=== PATIENT | female | born 1980 | race African-American/Black ===

== ENCOUNTER 2017-08-22 07:07 | Emergency (ER) | payer OTHER ==
[~2017-08-22] VITALS: Ht 170.2 cm; Wt 116.8 kg
[~2017-08-22 07:07] MED LIST: ATOR20TA86 PO; HYDR25TA PO
[2017-08-22] MEDS ORDERED: NAPR250T4 PO (07:11)
[2017-08-22] MEDS ORDERED: PERTUSS(ACELL),DIPH,TET VAC/PF 0.5 ML VIAL IM ONE (08:15)
[2017-08-22 08:46] LABS: APPEARANCE,URINE CLOUDY (CLEAR); GLUCOSE, URINE (UA) NEGATIVE (NEGATIVE); KETONES,URINE NEGATIVE (NEGATIVE); LEUKOCYTE ESTERASE ,URINE SMALL (NEGATIVE); OCCULT BLOOD,URINE MODERATE (NEGATIVE); PH,URINE 5.5 (5.0-8.0); PROTEIN,URINE NEGATIVE (NEGATIVE)
[2017-08-22 08:55] LABS: RBC,URINE 0-2 /HPF (0-2); SQUAMOUS EPITHELIAL CELL,UR Few /LPF (None Seen); URINALYSIS COMMENT Few Trichomonas seen
[2017-08-22] MEDS ORDERED: BACITRACIN 0.9 GM PACKET OINTMENT TP ONE (09:00)
[2017-08-22] MEDS ORDERED: MetroNIDAZOLE 500 MG TABLET PO ONE (09:15)
[2017-08-22 09:16] VITALS: BP 161/95
== END 2017-08-22 09:35 | disposition home or self-care (01) ==
LOC: EMS 07:08
DX: M79.644 Pain in right finger(s) (principal); M25.562 Pain in left knee; A59.8 Trichomoniasis of other sites; I10 Essential (primary) hypertension; E78.00 Pure hypercholesterolemia, unspecified; J45.909 Unspecified asthma, uncomplicated; Z87.891 Personal history of nicotine dependence
CPT/HCPCS: 29505; 87086; 90471; 90715; 99285

== ENCOUNTER 2019-06-23 03:17 | Emergency (ER) | payer OTHER ==
[~2019-06-23] VITALS: Ht 170.2 cm; Wt 111.4 kg
[~2019-06-23 03:17] MED LIST changes: +NAPR250T4 PO
[2019-06-23] MEDS ORDERED: LISI10TA7 PO (03:34)
[2019-06-23] MEDS ORDERED: FURO20TA4 PO (03:34)
[2019-06-23 03:52] VITALS: BP_DIAS 86
[2019-06-23 04:18] LABS: BASOPHILS % (AUTO) 0.7 % (0.0-2.0); EOSINOPHILS % (AUTO) 0.7 % (1.0-6.0); HEMATOCRIT 38.5 % (36-46); HEMOGLOBIN 12.6 g/dL (12.0-16.0); LYMPHOCYTES # (AUTO) 2.6 K/uL (1.0-4.8); LYMPHOCYTES % (AUTO) 33.5 % (22.0-44.0); MEAN CORPUSCULAR HGB CONC 32.9 G/dL (31.0-37.0); MEAN CORPUSCULAR VOLUME 91 fL (80-100); MONOCYTES # (AUTO) 0.4 K/uL (0.1-1.0); MONOCYTES % (AUTO) 5.5 % (2.0-9.0); NEUTROPHILS # (AUTO) 4.6 K/uL (1.8-7.7); NEUTROPHILS % (AUTO) 59.6 % (40.0-70.0); PLATELET COUNT (AUTO) 315 K/uL (150-450); RED BLOOD CELL COUNT(AUTO) 4.21 MIL/uL (4.00-5.20); RED CELL DISTRIBUTION WIDTH 14.5 % (11.5-14.5)
[2019-06-23 04:24] LABS: APPEARANCE,URINE CLOUDY (CLEAR); BILIRUBIN,URINE NEGATIVE (NEGATIVE); GLUCOSE, URINE (UA) NEGATIVE (NEGATIVE); KETONES,URINE NEGATIVE (NEGATIVE); LEUKOCYTE ESTERASE ,URINE NEGATIVE (NEGATIVE); NITRATE,URINE NEGATIVE (NEGATIVE); OCCULT BLOOD,URINE MODERATE (NEGATIVE); PROTEIN,URINE NEGATIVE (NEGATIVE); UROBILINOGEN,URINE 0.2 mg/dL (<=1.0)
[2019-06-23 04:26] LABS: ANION GAP 8 mmol/L (8-16); CALCIUM, TOTAL 9.9 mg/dL (8.8-10.5); CARBON DIOXIDE 31 mmol/L (22-29); CHLORIDE 101 mmol/L (98-107); CREATININE 1.07 mg/dL (0.60-1.30); GLOMERULAR FILTR. RATE CALC > 60 mL/min (>60); GLUCOSE,RANDOM 121 mg/dL (70-110); POTASSIUM 3.4 mmol/L (3.5-5.1); SODIUM SERUM 140 mmol/L (136-145); UREA NITROGEN, BLOOD 11 mg/dL (7-18)
[2019-06-23 04:31] LABS: BACTERIA,URINE None Seen /HPF (None Seen); SQUAMOUS EPITHELIAL CELL,UR Many /LPF (None Seen)
[2019-06-23 04:39] LABS: ALANINE AMINOTRANSFERASE 48 U/L (12-78); ALBUMIN 4.1 g/dL (3.4-5.0); ALKALINE PHOSPHATASE 84 U/L (46-116); ASPARTATE AMINOTRANSFERASE 23 U/L (15-37); BILIRUBIN,TOTAL 0.5 mg/dL (0.1-1.0); HCG,QUANTITATIVE < 1 mIU/mL (0-6); TOTAL PROTEIN, SERUM 8.1 g/dL (6.4-8.2)
[2019-06-23] MEDS ORDERED: TraMADol HCL 50 MG TABLET PO ONE (05:30)
[2019-06-23] MEDS ORDERED: CYCLOBENZAPRINE HCL 10 MG TABLET PO ONE (05:30)
[2019-06-23 06:34] VITALS: BP_SYST 135
== END 2019-06-23 06:43 | disposition home or self-care (01) ==
LOC: EMS 03:19
DX: M54.5 Low back pain (principal); G89.29 Other chronic pain; J45.909 Unspecified asthma, uncomplicated; I10 Essential (primary) hypertension; E78.00 Pure hypercholesterolemia, unspecified; Z87.891 Personal history of nicotine dependence; Z59.0 Homelessness; Z90.49 Acquired absence of other specified parts of digestive tract; Z79.899 Other long term (current) drug therapy

== ENCOUNTER 2020-05-27 03:51 | Emergency (ER) | payer OTHER ==
[~2020-05-27] VITALS: Ht 170.2 cm; Wt 121.8 kg
[~2020-05-27 03:51] MED LIST changes: -ATOR20TA86 PO; +FURO20TA4 PO; +HYDR-1475 PO; -HYDR25TA PO; +LISI10TA7 PO; -NAPR250T4 PO
[2020-05-27 04:56] VITALS: BP 135/85
== END 2020-05-27 04:56 | disposition left against medical advice (07) ==
LOC: EMS 03:51
DX: R30.0 Dysuria (principal); M54.5 Low back pain; J45.909 Unspecified asthma, uncomplicated; E78.00 Pure hypercholesterolemia, unspecified; I10 Essential (primary) hypertension; F17.210 Nicotine dependence, cigarettes, uncomplicated; Z90.89 Acquired absence of other organs; Z59.0 Homelessness
CPT/HCPCS: 93005

== ENCOUNTER 2020-06-04 02:44 | Emergency (ER) | payer OTHER ==
[~2020-06-04] VITALS: Ht 175.3 cm; Wt 120.5 kg
[2020-06-04] MEDS ORDERED: MAG HYDROX/AL HYDROX/SIMETH 30 ML SUSP UDCUP PO ONE (04:30)
[2020-06-04] MEDS ORDERED: FAMOTIDINE 10 MG/ML 2 ML VIAL IVP ONE (04:30)
[2020-06-04 05:01] LABS: APPEARANCE,URINE CLEAR (CLEAR); BILIRUBIN,URINE NEGATIVE (NEGATIVE); GLUCOSE, URINE (UA) NEGATIVE (NEGATIVE); KETONES,URINE NEGATIVE (NEGATIVE); LEUKOCYTE ESTERASE ,URINE NEGATIVE (NEGATIVE); NITRATE,URINE NEGATIVE (NEGATIVE); OCCULT BLOOD,URINE TRACE (NEGATIVE); PROTEIN,URINE NEGATIVE (NEGATIVE); UROBILINOGEN,URINE 0.2 mg/dL (<=1.0)
[2020-06-04 05:03] LABS: BACTERIA,URINE Rare /HPF (None Seen); RBC,URINE 0-2 /HPF (0-2); SQUAMOUS EPITHELIAL CELL,UR Few /LPF (None Seen); WBC,URINE 0-2 /HPF (0-5)
[2020-06-04 05:25] LABS: BASOPHILS % (AUTO) 0.5 % (0.0-2.0); EOSINOPHILS % (AUTO) 1.2 % (1.0-6.0); HEMATOCRIT 36.2 % (36-46); HEMOGLOBIN 11.8 g/dL (12.0-16.0); LYMPHOCYTES # (AUTO) 2.5 K/uL (1.0-4.8); LYMPHOCYTES % (AUTO) 33.5 % (22.0-44.0); MEAN CORPUSCULAR HGB CONC 32.5 G/dL (31.0-37.0); MEAN CORPUSCULAR VOLUME 89 fL (80-100); MONOCYTES # (AUTO) 0.4 K/uL (0.1-1.0); MONOCYTES % (AUTO) 5.1 % (2.0-9.0); NEUTROPHILS # (AUTO) 4.4 K/uL (1.8-7.7); NEUTROPHILS % (AUTO) 59.7 % (40.0-70.0); PLATELET COUNT (AUTO) 311 K/uL (150-450); RED BLOOD CELL COUNT(AUTO) 4.06 MIL/uL (4.00-5.20); RED CELL DISTRIBUTION WIDTH 14.5 % (11.5-14.5)
[2020-06-04 05:36] LABS: ANION GAP 3 mmol/L (8-16); CALCIUM, TOTAL 8.8 mg/dL (8.8-10.5); CARBON DIOXIDE 33 mmol/L (22-29); CHLORIDE 102 mmol/L (98-107); CREATININE 1.12 mg/dL (0.60-1.30); GLOMERULAR FILTR. RATE CALC > 60 mL/min (>60); GLUCOSE,RANDOM 142 mg/dL (70-110); POTASSIUM 3.3 mmol/L (3.5-5.1); SODIUM SERUM 138 mmol/L (136-145); UREA NITROGEN, BLOOD 12 mg/dL (7-18)
[2020-06-04 05:56] LABS: D-DIMER 0.33 mg/L FEU (0.00-0.50); PROTHROMBIN TIME 10.3 SEC (9.4-11.6)
[2020-06-04 06:00] LABS: B-TYPE NATRIURETIC PEPTIDE < 4 pg/mL (0-100)
[2020-06-04] MEDS ORDERED: POTASSIUM CHLORIDE 20 MEQ ER TABLET PO ONE (06:00)
[2020-06-04 06:01] LABS: ALANINE AMINOTRANSFERASE 39 U/L (12-78); ALBUMIN 3.6 g/dL (3.4-5.0); ALKALINE PHOSPHATASE 80 U/L (46-116); ASPARTATE AMINOTRANSFERASE 23 U/L (15-37); BILIRUBIN,TOTAL 0.4 mg/dL (0.1-1.0); CREATINE KINASE, TOTAL ONLY 384 U/L (26-192); HCG,QUANTITATIVE 1 mIU/mL (0-6); TOTAL PROTEIN, SERUM 7.9 g/dL (6.4-8.2)
[2020-06-04 07:00] VITALS: BP 141/84
== END 2020-06-04 08:11 | disposition home or self-care (01) ==
LOC: EMS 02:44
DX: R60.0 Localized edema (principal); Z20.828 Contact with and (suspected) exposure to other viral communicable diseases
CPT/HCPCS: 36415; 71045; 80053; 81001; 82550; 83880; 84484; 84702; 85025; 85379; 85610; 85730; 93005; 93971; 96374; 99285; J3490; U0003

== ENCOUNTER 2020-12-18 00:16 | Emergency (ER) | payer OTHER ==
[~2020-12-18] VITALS: Ht 170.2 cm; Wt 129.6 kg
[2020-12-18 00:18] VITALS: BP 144/99
== END 2020-12-18 02:09 | disposition left against medical advice (07) ==
LOC: EMS 00:16
DX: R06.02 Shortness of breath (principal); Z53.21 Procedure and treatment not carried out due to patient leaving prior to being seen by health care provider

== ENCOUNTER 2021-09-12 02:36 | Emergency (ER) | payer OTHER ==
[~2021-09-12] VITALS: Ht 157.5 cm; Wt 121.4 kg
[~2021-09-12 02:36] MED LIST changes: -HYDR-1475 PO; +HYDR25TA2 PO; +LISI10TA24 PO; -LISI10TA7 PO
[2021-09-12 03:11] VITALS: BP 169/82
[2021-09-12 03:11] LABS: BASOPHILS % (AUTO) 0.5 % (0.0-2.0); EOSINOPHILS % (AUTO) 1.5 % (1.0-6.0); HEMATOCRIT 35.1 % (36-46); HEMOGLOBIN 11.5 g/dL (12.0-16.0); LYMPHOCYTES # (AUTO) 2.4 K/uL (1.0-4.8); LYMPHOCYTES % (AUTO) 39.8 % (22.0-44.0); MEAN CORPUSCULAR HEMOGLOBIN 29.5 pg (26.0-34.0); MEAN CORPUSCULAR HGB CONC 32.8 G/dL (31.0-37.0); MEAN CORPUSCULAR VOLUME 90 fL (80-100); MONOCYTES # (AUTO) 0.3 K/uL (0.1-1.0); NEUTROPHILS # (AUTO) 3.1 K/uL (1.8-7.7); NEUTROPHILS % (AUTO) 53.2 % (40.0-70.0); PLATELET COUNT (AUTO) 283 K/uL (150-450); RED CELL DISTRIBUTION WIDTH 13.9 % (11.5-14.5)
[2021-09-12 03:22] LABS: ANION GAP 11 mmol/L (8-16); CALCIUM, TOTAL 8.3 mg/dL (8.8-10.5); CARBON DIOXIDE 25 mmol/L (22-29); CHLORIDE 107 mmol/L (98-107); CREATININE 1.12 mg/dL (0.60-1.30); GLOMERULAR FILTR. RATE CALC > 60 mL/min (>60); GLUCOSE,RANDOM 134 mg/dL (70-110); POTASSIUM 3.9 mmol/L (3.5-5.1); SODIUM SERUM 143 mmol/L (136-145); UREA NITROGEN, BLOOD 15 mg/dL (7-18)
[2021-09-12 03:25] LABS: ALANINE AMINOTRANSFERASE 48 U/L (12-78); ALBUMIN 3.5 g/dL (3.4-5.0); ALKALINE PHOSPHATASE 87 U/L (46-116); ASPARTATE AMINOTRANSFERASE 23 U/L (15-37); BILIRUBIN,TOTAL 0.3 mg/dL (0.1-1.0); TOTAL PROTEIN, SERUM 7.3 g/dL (6.4-8.2)
[2021-09-12 03:29] LABS: B-TYPE NATRIURETIC PEPTIDE 14 pg/mL (0-100)
[2021-09-12 03:43] LABS: HCG,QUANTITATIVE 1 mIU/mL (0-6)
[2021-09-12] MEDS ORDERED: KETOROLAC TROMETHAMINE 10 MG TABLET PO ONE (03:45)
[2021-09-12] MEDS ORDERED: FUROSEMIDE 20 MG TABLET PO ONE (03:45)
== END 2021-09-12 04:32 | disposition home or self-care (01) ==
LOC: EMS 02:37
DX: M79.89 Other specified soft tissue disorders (principal); J45.909 Unspecified asthma, uncomplicated; E78.00 Pure hypercholesterolemia, unspecified; I10 Essential (primary) hypertension; F17.210 Nicotine dependence, cigarettes, uncomplicated; Z59.00 Homelessness unspecified; Z90.89 Acquired absence of other organs; Z88.2 Allergy status to sulfonamides; Z91.011 Allergy to milk products; Z79.899 Other long term (current) drug therapy
CPT/HCPCS: 80053; 83880; 84702; 85025; 93005; 99284

== ENCOUNTER 2021-10-04 03:40 | Emergency (ER) | payer OTHER ==
[~2021-10-04] VITALS: Ht 170.2 cm; Wt 120.5 kg
[2021-10-04 03:53] VITALS: BP 163/97
[2021-10-04 04:22] LABS: COVID AG,FIA SOURCE NASOPHARYNGEAL
== END 2021-10-04 05:10 | disposition home or self-care (01) ==
LOC: EMS 03:43
DX: J40 Bronchitis, not specified as acute or chronic (principal); I11.0 Hypertensive heart disease with heart failure; I50.9 Heart failure, unspecified; E78.00 Pure hypercholesterolemia, unspecified; Z87.891 Personal history of nicotine dependence; Z20.822 Contact with and (suspected) exposure to COVID-19; Z88.8 Allergy status to other drugs, medicaments and biological substances; Z79.899 Other long term (current) drug therapy
CPT/HCPCS: 99283

== ENCOUNTER 2023-01-28 13:43 | Emergency (ER) | payer OTHER ==
[~2023-01-28] VITALS: Ht 170.2 cm; Wt 120.5 kg
[2023-01-28 13:46] VITALS: BP 156/62
== END 2023-01-28 16:33 | disposition left against medical advice (07) ==
LOC: EMS 13:47
DX: M25.551 Pain in right hip (principal); M25.562 Pain in left knee; Z53.21 Procedure and treatment not carried out due to patient leaving prior to being seen by health care provider
CPT/HCPCS: 99281; Z7502

== ENCOUNTER 2024-03-16 21:54 | Emergency (ER) | payer OTHER ==
[~2024-03-16] VITALS: Ht 170.2 cm; Wt 120.0 kg
[2024-03-16 22:37] VITALS: TEMP 97.7
[2024-03-16] MEDS ORDERED: METF-1211 PO (22:41)
[2024-03-16] MEDS ORDERED: ALBU18HF12 IH (22:41)
[2024-03-16] MEDS ORDERED: ALBU90AE IH (22:42)
[2024-03-17] MEDS ORDERED: LIDOCAINE 1% 10 ML VIAL IM ONE (00:45)
[2024-03-17] MEDS: LIDOCAINE/PF 1% 5 ML VIAL IM ONE (00:49)
[2024-03-17] MEDS: DOXYCYCLINE HYCLATE 100 MG TABLET PO ONE (02:20)
[2024-03-17] MEDS: OxyCODONE HCL/ACETAMINOPHEN 5-325 MG TABLET PO ONE (02:20)
[2024-03-17 02:40] VITALS: BP 134/81; PULSE 80; RESP 18
[2024-03-17] MEDS: CEPHALEXIN MONOHYDRATE 250 MG/5 ML SUSPENSION ORAL.SYG PO ONE (03:00)
== END 2024-03-17 03:48 | disposition home or self-care (01) ==
LOC: EMS 21:56
DX: L02.11 Cutaneous abscess of neck (principal); E78.00 Pure hypercholesterolemia, unspecified; I10 Essential (primary) hypertension; J44.89 Other specified chronic obstructive pulmonary disease; Z87.440 Personal history of urinary (tract) infections; Z87.891 Personal history of nicotine dependence; Z90.49 Acquired absence of other specified parts of digestive tract; Z88.2 Allergy status to sulfonamides; Z59.00 Homelessness unspecified; Z98.890 Other specified postprocedural states
CPT/HCPCS: 99284; 10060; J2001

== ENCOUNTER 2025-06-30 03:23 | Emergency (ER) | payer OTHER ==
[~2025-06-30] VITALS: Ht 171.4 cm; Wt 114.5 kg
[~2025-06-30 03:23] MED LIST changes: +ALBU18HF12 IH; +ALBU90AE IH; -FURO20TA4 PO; -LISI10TA24 PO; +METF-1211 PO
[2025-06-30 03:37] VITALS: BP 152/93; PULSE 91; RESP 18; TEMP 98.5; O2SAT 100
[2025-06-30 03:51] LABS: GLUCOMETER DEV NAME(LOC) ER.7; GLUCOSE,POINT OF CARE 187 MG/DL (70-110)
[2025-06-30 04:00] LABS: APPEARANCE,URINE HAZY (CLEAR); GLUCOSE, URINE (UA) NEGATIVE (NEGATIVE); LEUKOCYTE ESTERASE ,URINE LARGE (NEGATIVE); NITRATE,URINE NEGATIVE (NEGATIVE); OCCULT BLOOD,URINE NEGATIVE (NEGATIVE); SPECIFIC GRAVITIY, URINE 1.030 (1.003-1.030)
[2025-06-30 04:21] LABS: SQUAMOUS EPITHELIAL CELL,UR Few /LPF (None Seen)
== END 2025-06-30 06:15 | disposition left against medical advice (07) ==
LOC: EMS 03:31
DX: R30.9 Painful micturition, unspecified (principal); Z53.21 Procedure and treatment not carried out due to patient leaving prior to being seen by health care provider
CPT/HCPCS: 81001; 82962; 87086

== ENCOUNTER 2025-07-11 05:54 | Emergency (ER) | payer OTHER ==
[~2025-07-11] VITALS: Ht 170.2 cm; Wt 116.4 kg
[2025-07-11 06:02] VITALS: TEMP 98.1
[2025-07-11 06:33] LABS: PLATELET COUNT (AUTO) 318 K/uL (150-450); RED BLOOD CELL COUNT(AUTO) 4.41 MIL/uL (4.00-5.20); RED CELL DISTRIBUTION WIDTH 14.1 % (11.5-14.5); WHITE BLOOD COUNT (AUTO) 4.9 K/uL (4.5-11.0)
[2025-07-11 06:40] LABS: CALCIUM, TOTAL 8.7 mg/dL (8.8-10.5); CREATININE 1.11 mg/dL (0.60-1.30); GLOMERULAR FILTR. RATE CALC > 60 mL/min (>60); GLUCOSE,RANDOM 238 mg/dL (70-110); SODIUM SERUM 138 mmol/L (136-145); UREA NITROGEN, BLOOD 9 mg/dL (7-18)
[2025-07-11 06:49] LABS: TROPONIN I-HIGH SENSITIVITY 6 ng/L (<51)
[2025-07-11 06:53] LABS: CREATINE KINASE, TOTAL ONLY 308 U/L (26-192)
[2025-07-11 07:18] LABS: APPEARANCE,URINE HAZY (CLEAR); GLUCOSE, URINE (UA) 300-500 mg/dL (NEGATIVE); LEUKOCYTE ESTERASE ,URINE LARGE (NEGATIVE); NITRATE,URINE NEGATIVE (NEGATIVE); OCCULT BLOOD,URINE TRACE (NEGATIVE); SPECIFIC GRAVITIY, URINE 1.030 (1.003-1.030)
[2025-07-11] MEDS: MetFORMIN HCL 500 MG ER TABLET PO ONE (07:22)
[2025-07-11] MEDS: IBUPROFEN 600 MG TABLET PO ONE (07:22)
[2025-07-11] MEDS: HYDROCODONE/ACETAMINOPHEN 5-325 MG TABLET PO ONE (07:22)
[2025-07-11 07:26] LABS: SQUAMOUS EPITHELIAL CELL,UR Many /LPF (None Seen)
[2025-07-11] MEDS: IPRATROPIUM BROMIDE 0.5 MG/2.5 ML NEB SOLUTION NEB ONE (07:30)
[2025-07-11] MEDS: ALBUTEROL SULFATE 2.5 MG/0.5 ML NEB SOLUTION NEB ONE (07:30)
[2025-07-11 07:35] VITALS: PULSE 96; RESP 22; O2SAT 98
[2025-07-11 07:45] VITALS: PULSE 95; RESP 20; O2SAT 100
[2025-07-11] MEDS ORDERED: IBUP600 PO (08:33)
[2025-07-11] MEDS ORDERED: PREDAOS OU (08:33)
[2025-07-11] MEDS ORDERED: ALBU18HF12 IH (08:33)
[2025-07-11] MEDS ORDERED: OFLO5DRO49 OU (08:33)
[2025-07-11] MEDS ORDERED: HYDR25TA2 PO (08:33)
[2025-07-11] MEDS ORDERED: ALBU90AE IH (08:33)
[2025-07-11] MEDS ORDERED: METF-1211 PO (08:33)
[2025-07-11] MEDS ORDERED: CEPH-558 PO (08:33)
[2025-07-11] MEDS ORDERED: METH-659 PO (08:34)
[2025-07-11] MEDS ORDERED: PRED-554 PO (08:34)
[2025-07-11 08:45] VITALS: BP 141/84; PULSE 92; RESP 20; O2SAT 98
== END 2025-07-11 10:22 | disposition home or self-care (01) ==
LOC: EMS 05:54
DX: J45.901 Unspecified asthma with (acute) exacerbation (principal); E11.65 Type 2 diabetes mellitus with hyperglycemia; E78.00 Pure hypercholesterolemia, unspecified; N39.0 Urinary tract infection, site not specified; I10 Essential (primary) hypertension; J44.1 Chronic obstructive pulmonary disease with (acute) exacerbation; Z87.891 Personal history of nicotine dependence; Z90.49 Acquired absence of other specified parts of digestive tract; Z88.1 Allergy status to other antibiotic agents; Z88.2 Allergy status to sulfonamides; Z59.00 Homelessness unspecified; Z79.899 Other long term (current) drug therapy; Z98.890 Other specified postprocedural states
CPT/HCPCS: 99285; 71045; 80048; 81001; 82550; 82962; 83880; 84484; 85025; 85379; 87086; 36415; 94640; 93005; J7512; 94760; J7613

== ENCOUNTER 2025-07-29 04:55 | Emergency (ER) | payer OTHER ==
[~2025-07-29] VITALS: Ht 172.7 cm; Wt 130.0 kg
[~2025-07-29 04:55] MED LIST changes: +CEPH-558 PO; +IBUP600 PO; +METH-659 PO; +OFLO5DRO49 OU; +PRED-554 PO; +PREDAOS OU
[2025-07-29 05:01] VITALS: TEMP 98.4
[2025-07-29 06:16] LABS: GLUCOMETER DEV NAME(LOC) ER.7; GLUCOSE,POINT OF CARE 212 MG/DL (70-110)
[2025-07-29 06:25] VITALS: BP 145/86; PULSE 90; RESP 18; O2SAT 100
[2025-07-29 06:35] LABS: APPEARANCE,URINE CLEAR (CLEAR); GLUCOSE, URINE (UA) NEGATIVE (NEGATIVE); LEUKOCYTE ESTERASE ,URINE SMALL (NEGATIVE); NITRATE,URINE NEGATIVE (NEGATIVE); OCCULT BLOOD,URINE NEGATIVE (NEGATIVE); SPECIFIC GRAVITIY, URINE 1.023 (1.003-1.030)
[2025-07-29 06:39] LABS: HCG,QUAL URINE NEGATIVE (NEGATIVE)
[2025-07-29] MEDS: ACETAMINOPHEN/CODEINE 300-30 MG TABLET PO ONE (07:02)
[2025-07-29] MEDS: IBUPROFEN 600 MG TABLET PO ONE (07:02)
[2025-07-29] MEDS ORDERED: HYDR-4808 PO (07:02)
[2025-07-29] MEDS ORDERED: IBUP600 PO (07:02)
[2025-07-29] MEDS ORDERED: PREDAOS OU (07:02)
[2025-07-29] MEDS ORDERED: OFLO5DRO49 OU (07:02)
[2025-07-29] MEDS ORDERED: NITR-104 PO (07:02)
[2025-07-29 07:03] LABS: SQUAMOUS EPITHELIAL CELL,UR Few /LPF (None Seen); URINALYSIS COMMENT Rare Trich. seen.
== END 2025-07-29 07:35 | disposition home or self-care (01) ==
LOC: EMS 05:00
DX: R51.9 Headache, unspecified (principal); R30.0 Dysuria; F41.9 Anxiety disorder, unspecified; G47.00 Insomnia, unspecified; E11.9 Type 2 diabetes mellitus without complications; E78.00 Pure hypercholesterolemia, unspecified; I10 Essential (primary) hypertension; J44.89 Other specified chronic obstructive pulmonary disease; Z87.891 Personal history of nicotine dependence; Z59.00 Homelessness unspecified; Z79.52 Long term (current) use of systemic steroids; Z79.84 Long term (current) use of oral hypoglycemic drugs; Z79.899 Other long term (current) drug therapy; Z88.1 Allergy status to other antibiotic agents; Z88.2 Allergy status to sulfonamides; Z90.49 Acquired absence of other specified parts of digestive tract; Y04.0XXA Assault by unarmed brawl or fight, initial encounter; Y93.89 Activity, other specified; Y92.219 Unspecified school as the place of occurrence of the external cause; Y99.8 Other external cause status
CPT/HCPCS: 81001; 82962; 84703; 99283

== ENCOUNTER 2025-08-14 06:59 | Emergency (ER) | payer OTHER ==
[~2025-08-14] VITALS: Ht 171.4 cm; Wt 118.2 kg
[~2025-08-14 06:59] MED LIST changes: +HYDR-4808 PO; +NITR-104 PO
[2025-08-14 07:13] VITALS: TEMP 97.7
[2025-08-14 07:35] LABS: GLUCOMETER DEV NAME(LOC) ERT.7; GLUCOSE,POINT OF CARE 151 MG/DL (70-110)
[2025-08-14 07:40] LABS: PLATELET COUNT (AUTO) 287 K/uL (150-450); RED BLOOD CELL COUNT(AUTO) 3.86 MIL/uL (4.00-5.20); RED CELL DISTRIBUTION WIDTH 14.2 % (11.5-14.5); WHITE BLOOD COUNT (AUTO) 5.6 K/uL (4.5-11.0)
[2025-08-14 07:45] LABS: CALCIUM, TOTAL 8.2 mg/dL (8.8-10.5); CREATININE 0.82 mg/dL (0.60-1.30); GLOMERULAR FILTR. RATE CALC > 60 mL/min (>60); GLUCOSE,RANDOM 150 mg/dL (70-110); SODIUM SERUM 139 mmol/L (136-145); UREA NITROGEN, BLOOD 8 mg/dL (7-18)
[2025-08-14 07:54] LABS: TROPONIN I-HIGH SENSITIVITY 6 ng/L (<51)
[2025-08-14 09:30] VITALS: PULSE 85; PULSE 87; RESP 20; RESP 24; O2SAT 100
[2025-08-14] MEDS: ALBUTEROL SULFATE 2.5 MG/0.5 ML NEB SOLUTION NEB ONE (09:31)
[2025-08-14] MEDS: IPRATROPIUM BROMIDE 0.5 MG/2.5 ML NEB SOLUTION NEB ONE ×2 (09:31→10:05)
[2025-08-14] MEDS: ALBUTEROL SULFATE 2.5 MG/0.5 ML 5 ML NEB SOLUTION NEB ONE (10:06)
[2025-08-14 11:25] VITALS: BP 132/84; PULSE 74; RESP 17; O2SAT 98
[2025-08-14] MEDS ORDERED: PRED-554 PO (12:42)
[2025-08-14] MEDS: ALBUTEROL SULFATE HFA 90 MCG/PUFF 8 GM INHALER IH ONE (12:56)
== END 2025-08-14 13:27 | disposition home or self-care (01) ==
LOC: EMS 07:04
DX: J44.89 Other specified chronic obstructive pulmonary disease (principal); R06.02 Shortness of breath; E11.9 Type 2 diabetes mellitus without complications; E78.00 Pure hypercholesterolemia, unspecified; I10 Essential (primary) hypertension; Z87.891 Personal history of nicotine dependence; Z59.00 Homelessness unspecified; Z79.52 Long term (current) use of systemic steroids; Z88.2 Allergy status to sulfonamides; Z88.1 Allergy status to other antibiotic agents; Z90.49 Acquired absence of other specified parts of digestive tract; Z79.899 Other long term (current) drug therapy
CPT/HCPCS: 99285; 71045; 80048; 82962; 83880; 84484; 85025; 36415; 94640; 93005; J7512; J3535; J7613